=== PATIENT | female | born 1985 | race Caucasian/White ===

== ENCOUNTER 2018-10-21 11:16 | Emergency (ER) | payer SELFPAY ==
[~2018-10-21] VITALS: Ht 160 cm; Wt 115.2 kg
[2018-10-21 11:21] VITALS: Ht 160 cm; Wt 115.2 kg
[2018-10-21 12:00] LABS: UA SPECIFIC GRAVITY 1.015 (1.005-1.035); microscopic required? YES; urine erythrocyte 3+ (NEGATIVE)
[2018-10-21 12:03] LABS: BASOPHIL % 0.5 % (0-2); PLATELET COUNT 369 x10^3mcL (130-400); RED CELL DISTRIBUTION WIDTH 14.4 % (11.5-14.5)
[2018-10-21 12:11] VITALS: BP 122/74
== END 2018-10-21 14:40 | disposition home or self-care (01) ==
LOC: ED 11:16
PROVIDERS: Emergency Medicine
DX: N93.8 Other specified abnormal uterine and vaginal bleeding (principal); E66.9 Obesity, unspecified; Z68.42 Body mass index [BMI] 45.0-49.9, adult
CPT/HCPCS: 36415